=== PATIENT | female | born 1985 | race Two or more races ===

== ENCOUNTER 2021-05-26 05:38 | Day surgery (SDC) | payer OTHER | END 2021-05-26 15:55 | disposition home or self-care (01) | LOC: CIR.AMB 05:38 | PROVIDERS: ATTEND Obstetrics & Gynecology | DX: N92.0 Excessive and frequent menstruation with regular cycle (principal); Z20.822 Contact with and (suspected) exposure to COVID-19 ==

== ENCOUNTER 2022-06-13 07:46 | Outpatient (CLI) | payer OTHER | END 2022-06-13 08:47 | disposition home or self-care (01) | LOC: NST 07:46 | PROVIDERS: ATTEND Obstetrics & Gynecology | DX: Z34.83 Encounter for supervision of other normal pregnancy, third trimester (principal) ==

== ENCOUNTER 2022-06-17 11:19 | Outpatient (CLI) | payer OTHER | END 2022-06-17 12:02 | disposition home or self-care (01) | LOC: NST 11:19 | PROVIDERS: ATTEND Obstetrics & Gynecology | DX: Z34.83 Encounter for supervision of other normal pregnancy, third trimester (principal) ==

== ENCOUNTER 2022-06-28 13:45 | Inpatient (IN) | payer OTHER ==
[~2022-06-28] VITALS: Ht 152.4 cm; Wt 2.7 kg
[2022-07-07] MEDS ORDERED: PRENATAL CAPLE1 EAC1 PO (11:06)
== END 2022-07-09 14:01 | disposition home or self-care (01) | DRG 788 ==
LOC: SURG 07-06 13:45 → LDR 07-07 10:20 → OB/GYN 07-07 19:03
PROVIDERS: ADMIT Obstetrics & Gynecology; ATTEND Obstetrics & Gynecology
PROC: 0UB90ZZ Excision of Uterus, Open Approach (ICD-10-PCS; 2022-07-07)
PROC: 4A1HXCZ Monitoring of Products of Conception, Cardiac Rate, External Approach (ICD-10-PCS; 2022-07-07)
PROC: 10D00Z1 Extraction of Products of Conception, Low, Open Approach (ICD-10-PCS; principal; 2022-07-07 15:00)
DX: O34.13 Maternal care for benign tumor of corpus uteri, third trimester (principal); D25.9 Leiomyoma of uterus, unspecified; Z3A.40 40 weeks gestation of pregnancy; Z37.0 Single live birth; Z20.822 Contact with and (suspected) exposure to COVID-19

== ENCOUNTER 2022-06-30 09:17 | Outpatient (CLI) | payer OTHER | END 2022-06-30 10:05 | disposition home or self-care (01) | LOC: NST 09:17 | PROVIDERS: ATTEND Obstetrics & Gynecology | DX: Z34.83 Encounter for supervision of other normal pregnancy, third trimester (principal) ==

== ENCOUNTER 2022-07-04 09:02 | Outpatient (CLI) | payer OTHER | END 2022-07-04 09:58 | disposition home or self-care (01) | LOC: NST 09:02 | PROVIDERS: ATTEND Obstetrics & Gynecology Maternal & Fetal Medicine | DX: Z34.83 Encounter for supervision of other normal pregnancy, third trimester (principal) ==

== ENCOUNTER 2022-07-07 08:21 | Outpatient (CLI) | payer OTHER ==
[2022-07-07] MEDS ORDERED: PRENATAL CAPLE1 EAC1 PO (11:06)
== END 2022-07-07 09:00 | disposition home or self-care (01) ==
LOC: NST 08:21
PROVIDERS: ATTEND Obstetrics & Gynecology Maternal & Fetal Medicine
DX: Z34.83 Encounter for supervision of other normal pregnancy, third trimester (principal)